=== PATIENT | female | born 1985 | race Caucasian/White ===

== ENCOUNTER 2021-03-28 18:34 | Emergency (ER) | payer SELFPAY ==
[2021-03-28 19:04] LABS: BASOPHIL 0.2 % (0-2); EOSINOPHIL 0.2 % (0-5); HCT 45.6 % (37.0-47.0); HGB 15.4 g/dl (12.5-16.0); LYMPHOCYTE 24.4 % (15-48); MCH 30.6 pg (25.0-31.0); MCHC 33.8 g/dL (32.0-36.0); MCV 90.5 fL (78.0-100.0); MONOCYTE 11.8 % (0-12); MPV 11.1 fL (6.0-9.5); NRBC 0; PLT 159 K/uL (150-400); RBC 5.04 M/uL (4.20-5.40); RDW 13.5 % (11.5-14.0); WBC 5.3 K/uL (4.0-10.5)
[2021-03-28 19:20] LABS: BUN/CREAT RATIO (CALC) 9.8 RATIO; CREATININE 0.82 mg/dL (0.51-0.95); POTASSIUM 3.6 mmol/L (3.5-5.1)
[2021-03-28] MEDS ORDERED: ONDANSETRON ODT4 MG PO (22:18)
[2021-03-28] MEDS ORDERED: MEDROL 4MG DOSEP4 MG PO (22:18)
== END 2021-03-28 22:44 | disposition home or self-care (01) ==
LOC: FER 18:34
PROVIDERS: Nurse Practitioner Family
DX: R07.89 Other chest pain (principal); R20.2 Paresthesia of skin; Z88.2 Allergy status to sulfonamides
CPT/HCPCS: 36415; 71045; 80048; 84484; 85025; 85379; 93005; J1100